=== PATIENT | male | born 1950 | race Caucasian/White ===

== ENCOUNTER 2022-04-02 06:51 | Day surgery (SDC) | payer OTHER ==
[~2022-04-02] VITALS: Ht 167.6 cm; Wt 84.4 kg
[2022-04-02] MEDS ORDERED: CEFAZOLIN SOD 2 GM in D5W 50 ML IV ONE (07:00)
[2022-04-02] MEDS ORDERED: HYDROmorphone 1 MG/ML INJ. CARTRIDGE IVP PRN (10:45)
[2022-04-02] MEDS ORDERED: IBUPROFEN 600 MG TABLET PO ONE (10:45)
[2022-04-02] MEDS ORDERED: MEPERIDINE HCL/PF 25 MG/ML DISP.SYRIN IVP PRN (10:45)
[2022-04-02] MEDS ORDERED: ONDANSETRON HCL 4 MG/2 ML VIAL IVP PRN (10:45)
[2022-04-02] MEDS ORDERED: METOCLOPRAMIDE HCL 10 MG/2 ML VIAL IVP PRN (10:45)
[2022-04-02] MEDS ORDERED: fentaNYL CITRATE/PF 100 MCG/2 ML AMP ONE (11:55)
[2022-04-02] MEDS ORDERED: SEVOFLURANE 15 MIN GAS INH ONE (11:55)
[2022-04-02] MEDS ORDERED: NS 1000 ML IV.SOLN IV ONE (11:55)
[2022-04-02] MEDS ORDERED: BUPIVACAINE /EPINEPHRINE/PF 0.5% 30 ML VIAL INJ ONE (11:55)
[2022-04-02] MEDS ORDERED: NEOSTIGMINE METHYLSULFATE 1 MG/ML, 10 ML VIAL ONE (11:55)
[2022-04-02] MEDS ORDERED: GLYCOPYRROLATE 0.2 MG/ML VIAL ONE (11:55)
[2022-04-02] MEDS ORDERED: PROPOFOL 200MG/ 20ML VIAL (DIPRIVAN) IV ONE (11:55)
[2022-04-02] MEDS ORDERED: LR 1,000 ML IV.SOLN IV ONE (11:55)
[2022-04-02] MEDS ORDERED: NS IRRIG SOLN 1000 ML IR ONE (11:55)
[2022-04-02] MEDS ORDERED: SUCCINYLCHOLINE CHLORIDE 20 MG/ML(QUELICIN) ONE (11:55)
[2022-04-02] MEDS ORDERED: ONDANSETRON HCL 4 MG/2 ML VIAL ONE (11:55)
[2022-04-02] MEDS ORDERED: MEPERIDINE HCL/PF 25 MG/ML DISP.SYRIN ONE (12:09)
[2022-04-02 17:36] VITALS: BP_SYST 126
== END 2022-04-02 15:13 | disposition home or self-care (01) ==
LOC: SDS 06:51 → SMU 06:54 → SDS 15:13
PROVIDERS: ATTEND Surgery
DX: K80.10 Calculus of gallbladder with chronic cholecystitis without obstruction (principal); R94.5 Abnormal results of liver function studies; E11.9 Type 2 diabetes mellitus without complications; I10 Essential (primary) hypertension; E78.5 Hyperlipidemia, unspecified; Z95.1 Presence of aortocoronary bypass graft; I25.10 Atherosclerotic heart disease of native coronary artery without angina pectoris; I25.2 Old myocardial infarction; Z79.899 Other long term (current) drug therapy; Z20.822 Contact with and (suspected) exposure to COVID-19
CPT/HCPCS: 36415; 47563; 82962; 93005; 71045; 74300; 88304; U0003; J3490 ×2; J0690; J2405; J2704; J0330; J3010; J2175; Q9967; J7060; J7120; J7030; C1758; J2710; 76000